=== PATIENT | male | born 1935 | race Caucasian/White ===

== ENCOUNTER → 2019-06-09 | Outpatient (CLI) | payer OTHER | LOC: SJCVC 11:36 | DX: E78.5 Hyperlipidemia, unspecified (principal); I10 Essential (primary) hypertension; N52.1 Erectile dysfunction due to diseases classified elsewhere; Z79.899 Other long term (current) drug therapy; E03.9 Hypothyroidism, unspecified; Z90.09 Acquired absence of other part of head and neck; Z87.891 Personal history of nicotine dependence ==

== ENCOUNTER → 2019-12-08 | Outpatient (CLI) | payer OTHER | LOC: SJCVC 13:03 | PROVIDERS: ATTEND Internal Medicine | DX: R94.31 Abnormal electrocardiogram [ECG] [EKG] (principal); I10 Essential (primary) hypertension; E78.5 Hyperlipidemia, unspecified; N52.1 Erectile dysfunction due to diseases classified elsewhere; E03.9 Hypothyroidism, unspecified; Z87.891 Personal history of nicotine dependence; Z79.899 Other long term (current) drug therapy ==

== ENCOUNTER → 2019-12-28 | Outpatient (CLI) | payer OTHER | LOC: SJCVCIMAG 12-21 10:17 | PROVIDERS: ATTEND Internal Medicine | DX: I10 Essential (primary) hypertension (principal); R06.09 Other forms of dyspnea; N52.1 Erectile dysfunction due to diseases classified elsewhere; E03.9 Hypothyroidism, unspecified; E78.5 Hyperlipidemia, unspecified; Z79.899 Other long term (current) drug therapy ==

== ENCOUNTER → 2020-01-25 | Outpatient (CLI) | payer OTHER | LOC: RAD 15:48 | PROVIDERS: ATTEND Internal Medicine | DX: J90 Pleural effusion, not elsewhere classified (principal); I51.7 Cardiomegaly ==

== ENCOUNTER → 2020-02-09 | Outpatient (CLI) | payer OTHER | LOC: LAB 07:42 | PROVIDERS: ATTEND Internal Medicine | DX: Z01.812 Encounter for preprocedural laboratory examination (principal); Z20.828 Contact with and (suspected) exposure to other viral communicable diseases ==

== ENCOUNTER → 2020-02-13 | Outpatient (CLI) | payer OTHER ==
--- NOTE | 2020-02-20 09:01 | SLE ---
[facility] [place] [address] POLYSOMNOGRAPHY STUDY Name: SIMONA THOMAS Room #: [facility]#: [id number] Admission: 02/13/20 Attend Phys: Kwabena Hyatt MD Discharge: Date of : 39 Report #: [id number] THIS REPORT FOR: //name// CC: Kwabena Koehler MD DATE OF SERVICE: 02/13/2020 SLEEP STUDY REFERRING PHYSICIAN: Yaniv Koehler MD The patient is 84 years old who weighs 192 pounds with a BMI of 31. The patient had a home sleep study and was found to have sleep apnea. It was a combination of obstructive and central apneas. The patient's total AHI was 27 per hour. The patient was referred for in-lab titration study. During the night study, the patient spent 429 minutes in bed and slept for 295 minutes with a sleep efficiency of 69%. Sleep latency was 33.8 minutes with a REM latency of 59 minutes. Sleep architecture showed increased stage 1 and stage 2 sleep, normal slow wave and reduced REM sleep, which was 12% of total sleep time. EKG monitoring revealed an average heart rate of 62 beats per minute. No sustained arrhythmias observed. PLMS were seen at an index of 37 per hour, but only 0.8 per hour caused EEG arousals. The patient was started on CPAP at a pressure of 5 cm water and titrated up to 9 cm water. Further titration was not performed. At this pressure, the patient slept for 81.7 minutes. The patient had 19 minutes of REM sleep. The patient had supine sleep as well. The patient's AHI was still 35 per hour. The patient's oxygen saturations remained in the mid to high 80s. At the final pressure, the patient had 13 central apneas, 8 obstructive apneas and 27 hypopneas. Optimum CPAP pressure was not achieved. The patient would benefit from an auto CPAP. IMPRESSION: 1. Sleep apnea diagnosed previously. It was a combination of obstructive and central sleep apneas. 2. Nocturnal hypoxia, not completely resolved with CPAP. 3. Moderate periodic limb movements without any significant EEG arousals. This does not need to be treated unless the patient has symptoms of restless legs [facility] [address] [place] [address] POLYSOMNOGRAPHY STUDY Name: SIMONA THOMAS Room #: [facility]#: [id number] Admission: 02/13/20 Attend Phys: Kwabena Hyatt MD Discharge: Date of : 39 Report #: [id number] during the day. RECOMMENDATIONS: 1. As discussed above, Optimum CPAP pressure was not achieved on this titration study. I would recommend that the patient should be placed on an auto CPAP at a minimum pressure of 8 cm of water and a maximum pressure of 20 cm water. Outpatient nocturnal oximetry can be performed on recommended Auto-Pap settings to assess the need for supplemental oxygen. 2. Once the patient is optimally treated, then follow up in 4-6 weeks to assess compliance with CPAP and to document clinical improvement. I would also recommend review of the download data to make sure AHI remains less than 5 per hour. If the patient's AHI persistently remains more than 10 per hour, then the patient would benefit from return to the sleep lab for BiPAP titration study. 3. Avoid [employer] depressants. 4. Weight loss is advised. 5. Cautioned regarding driving until symptoms of sleep apnea resolve with the above recommendations. <ELECTRONICALLY SIGNED> By: Kwabena Hyatt MD 02/20/20 0901 [id number] Kwabena Hyatt MD /nt
== END ==
LOC: SLEEPLAB 13:55
PROVIDERS: ATTEND Internal Medicine Critical Care Medicine
DX: G47.33 Obstructive sleep apnea (adult) (pediatric) (principal)

== ENCOUNTER → 2020-03-15 | Outpatient (CLI) | payer OTHER | LOC: LAB 11:03 | PROVIDERS: ATTEND Internal Medicine | DX: Z01.812 Encounter for preprocedural laboratory examination (principal); Z20.828 Contact with and (suspected) exposure to other viral communicable diseases ==

== ENCOUNTER → 2020-03-19 | Outpatient (CLI) | payer OTHER ==
--- NOTE | 2020-03-23 10:52 | SLE ---
[facility] [place] [address] POLYSOMNOGRAPHY STUDY Name: SIMONA THOMAS Room #: REG [facility].#: [id number] Admission: 03/19/20 Attend Phys: Yaniv Koehler MD Discharge: Date of : 39 Report #: [id number] THIS REPORT FOR: cc: Yaniv Koehler MD, Timothy W. MD Khan, Aman U. MD ~ DATE OF SERVICE: 03/19/2020 SLEEP STUDY ATTENDING PHYSICIAN: Yaniv Koehler MD The patient is 84-year-old who weighs 193 pounds with a BMI of 31. The patient has a history of sleep apnea, which was initially seen by a sleep study performed in 01/2020. Sleep apnea was severe. It was a combination of central and obstructive apneas. The patient's total AHI was 27 per hour. The patient had 84 central apneas, 30 obstructive apneas and 83 hypopneas. The patient subsequently had a CPAP titration study, which was not successful and auto CPAP was recommended. However, despite using auto CPAP, the patient's AHI had remained high and as a result, he was referred to the sleep lab at [place] for a BiPAP titration study. During the night of the study, the patient spent 414 minutes in bed and slept for only 201 minutes with a poor sleep efficiency of 48%. Sleep latency was 5.3 minutes with a REM latency of 58.5 minutes. Sleep architecture showed increased stage 1 and stage 2 sleep, absent N3 sleep and significantly reduced REM sleep, which is 4.5% of the total sleep time. EKG monitoring revealed an average heart rate of 62 beats per minute. Frequent PVCs observed. No sustained arrhythmias observed. No clinically significant PLM seen. The patient was started on BiPAP at a pressure of 8/4. However, the patient had significantly increased central apneas. The BiPAP pressures were gradually increased. The patient required backup rate for the treatment of central apneas. Initially, it was started at 12 and titrated up to 16/ min. Best results were seen at a BiPAP pressure of 15/8. At that pressure, the patient slept for 23 minutes. The patient had supine sleep, but no REM sleep. The patient's AHI was reduced to 7.7 per hour and oxygen saturations remained in the mid to high 80s. After 15/8 BiPAP pressure, subsequent pressure increase was performed, but very limited sleep was observed on higher pressures. At a pressure of 18/12, the patient had only 7.9 minutes of sleep and the patient's AHI was 45 per hour. Difficult to assess that optimum BiPAP pressure was achieved on this titration study. However, [place] [address] POLYSOMNOGRAPHY STUDY Name: SIMONA THOMAS Room #: REG [facility]#: [id number] Admission: 03/19/20 Attend Phys: Yaniv Koehler MD Discharge: Date of : 39 Report #: [id number] should be placed on auto BiPAP at a maximum IPAP pressure of 20 with a minimum IPAP pressure of 10 with a backup rate of 16 and pressure support of 4. The patient should have a download data to assess the efficacy of current BiPAP. The patient would also benefit from adding 2 liters of supplemental oxygen. IMPRESSION: 1. Sleep apnea diagnosed previously. It was a combination of obstructive and central apneas. 2. 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 No clinically significant periodic limb movements. 4. Nocturnal hypoxia persisted while on BIPAP. RECOMMENDATIONS: 1. Due to poor sleep efficiency, an optimum BiPAP pressure was not achieved. I would recommend the patient should be placed on an auto BiPAP at a maximum IPAP pressure of 20 with a minimum EPAP pressure of 10 and pressure support of 4. The patient would benefit from adding backup rate of 16 and adding 2 liters of supplemental oxygen. The patient's nocturnal hypoxia did not completely resolve with positive pressure therapy. 2. The patient should have a followup in 4-6 weeks to assess the efficacy of BiPAP and to document clinical improvement along with review of download data. 3. Weight loss is advised. 4. Avoid [employer] depressants. 5. Cautioned regarding driving until symptoms of sleep apnea resolve with the use of BiPAP. 6. 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 <ELECTRONICALLY SIGNED> By: Kwabena Hyatt MD 03/23/20 1052 08 Kwabena Hyatt MD /nt
== END ==
LOC: SLEEPLAB 11:31
PROVIDERS: ATTEND Internal Medicine
DX: G47.33 Obstructive sleep apnea (adult) (pediatric) (principal)